=== PATIENT | female | born 1995 | race Caucasian/White ===

== ENCOUNTER 2021-07-29 20:29 | Inpatient (IN) | payer MEDICAID ==
[~2021-07-29] VITALS: Ht 165.1 cm; Wt 120.3 kg
[2021-07-29] MEDS ORDERED: SODIUM CHLORIDE FLUSH 10ML SYR IVF ONE (21:00)
[2021-07-29] MEDS ORDERED: ACETAMINOPHEN 500 MG TABLET PO ONE (21:00)
[2021-07-29] MEDS ORDERED: SODIUM CHLORIDE 0.9% 1,000ML IVBOLUS ONE (21:00)
[2021-07-29 21:57] LABS: BASOPHILS % (AUTO) 2 % (0-1); EOSINOPHILS % (AUTO) 0 % (1-7); LYMPHOCYTES % (AUTO) 30 % (22-44); MEAN CORPUSCULAR HEMOGLOBIN 31.1 pg (27.0-34.8); MEAN CORPUSCULAR HGB CONC 33.8 g/dL (32.4-35.8); MEAN PLATELET VOLUME 8.5 fL (7.4-10.4); MONOCYTES % (AUTO) 10 % (2-9); NEUTROPHILS % (AUTO) 59 % (42-75); PLATELET COUNT 229 x10^3/uL (130-400); RED BLOOD COUNT 5.08 x10^6/uL (3.82-5.3); RED CELL DISTRIBUTION WIDTH 13.3 % (9.6-15.2)
--- NOTE | 2021-07-29 22:05 | NUR ---
PT. TO ROOM FROM LOBBY AT THIS TIME.
[2021-07-29 22:09] LABS: ALANINE AMINOTRANSFERASE 48 U/L (12-78); ALBUMIN 3.5 g/dL (3.4-5.0); ANION GAP 9 mmol/L (5-15); CALCIUM 8.5 mg/dL (8.5-10.1); CHLORIDE 103 mmol/L (98-107); CREATININE 0.85 mg/dL (0.55-1.02)
[2021-07-29 22:14] LABS: ALKALINE PHOSPHATASE 73 U/L (45-117); BILIRUBIN,TOTAL 0.7 mg/dL (0.2-1.0); TOTAL PROTEIN 8.1 g/dL (6.4-8.2); TROPONIN I < 0.015 ng/mL (0.000-0.045)
--- NOTE | 2021-07-29 22:24 | NUR ---
TURNED O2 OFF WHEN PT. FIRST ARRIVED TO ROOM. WITHIN ABOUT 10 MIN OFF O2 PT. O2 SAT DROPPED TO 88% WITHOUT RECOVERY. DR. LESLIE AWARE AND IN TO EVAL PT. AND DISCUSS POC.
--- NOTE | 2021-07-29 22:46 | NUR ---
REPORT FROM RANULFO THAKKAR. VERIFIED TYLENOL ALLERGY WITH PT, PT REPORTS NO ALLERGY TO TYLENOL.
--- NOTE | 2021-07-29 22:48 | NUR ---
[facility] AT BEDSIDE
--- NOTE | 2021-07-29 22:51 | NUR ---
[facility] UPDATED ABOUT TYLENOL ALLERGY NOT BEING ACCURATE. NO NEW ORDER FOR TYLENOL.
--- NOTE | 2021-07-29 22:59 | NUR ---
REPORT GIVEN TO TANYA THAKKAR
[2021-07-29] MEDS ORDERED: ONDANSETRON 2MG/ML, 2ML IVPush PRN (23:30)
[2021-07-29] MEDS ORDERED: PHARMACY MAY ADJ FOR RENAL FX MC PRN (23:30)
[2021-07-29] MEDS ORDERED: PROCHLORPERAZINE 10MG TABLET PO PRN (23:30)
[2021-07-29] MEDS ORDERED: CEFTRIAXONE 1,000 MG in DEXTROSE 5% 50 ML IVPB SCH (23:30)
[2021-07-29] MEDS ORDERED: MELATONIN 5 MG TABLET PO PRN (23:30)
[2021-07-29] MEDS ORDERED: ACETAMINOPHEN 325 MG TABLET PO PRN (23:30)
[2021-07-30 00:39] VITALS: BP 122/83
[2021-07-30] MEDS ORDERED: AZITHROMYCIN 500 MG in SODIUM CHLORIDE 0.9% 250 ML IV SCH (01:00)
[2021-07-30] MEDS: ENOXAPARIN 120MG/0.8ML SQ SCH ×2 (01:20→12:32)
[2021-07-30] MEDS: methylPREDNISolone SOD SUCC 40 MG/ML IVPush SCH ×4 (01:20→17:41)
[2021-07-30] MEDS ORDERED: DIPHENHYDRAMINE 50 MG/ML, 1ML IVPush ONE (02:30)
[2021-07-30 05:23] LABS: HCT (SEDRATE) 43.2 % (34.6-47.8)
[2021-07-30 05:24] LABS: BASOPHILS % (AUTO) 1 % (0-1); EOSINOPHILS % (AUTO) 0 % (1-7); LYMPHOCYTES % (AUTO) 15 % (22-44); MEAN CORPUSCULAR HEMOGLOBIN 31.5 pg (27.0-34.8); MEAN CORPUSCULAR HGB CONC 34.1 g/dL (32.4-35.8); MEAN PLATELET VOLUME 8.5 fL (7.4-10.4); MONOCYTES % (AUTO) 5 % (2-9); NEUTROPHILS % (AUTO) 80 % (42-75); PLATELET COUNT 218 x10^3/uL (130-400); RED BLOOD COUNT 4.67 x10^6/uL (3.82-5.3); RED CELL DISTRIBUTION WIDTH 13.6 % (9.6-15.2)
[2021-07-30 05:35] LABS: ANION GAP 7 mmol/L (5-15); CALCIUM 8.1 mg/dL (8.5-10.1); CHLORIDE 105 mmol/L (98-107)
[2021-07-30 05:49] LABS: CREATININE 0.66 mg/dL (0.55-1.02)
[2021-07-30 08:42] VITALS: BP 120/79
[2021-07-30] MEDS: ALBUTEROL-IPRATROPIUM MDI INH INH SCH ×3 (08:45→17:41)
[2021-07-30] MEDS ORDERED: ZINC SULFATE 220 MG CAPSULE PO SCH (09:00)
[2021-07-30] MEDS ORDERED: ASCORBIC ACID 500 MG TABLET PO SCH (09:00)
[2021-07-30] MEDS ORDERED: ZINC220C8 PO (11:42)
[2021-07-30] MEDS ORDERED: ASCO500T9 PO (11:42)
[2021-07-30] MEDS ORDERED: FLUT1AER INH (11:42)
[2021-07-30] MEDS ORDERED: PRED5TAB PO (11:42)
[2021-07-30 14:27] VITALS: BP 133/84
== END 2021-07-30 18:16 | disposition home or self-care (01) | DRG 177 ==
LOC: ED 22:20 → EDIP 22:31 → 4EST 07-30 00:29
PROVIDERS: ADMIT Internal Medicine; ATTEND Internal Medicine
DX: U07.1 COVID-19 (principal); J96.01 Acute respiratory failure with hypoxia; J12.82 Pneumonia due to coronavirus disease 2019; F17.200 Nicotine dependence, unspecified, uncomplicated; J45.909 Unspecified asthma, uncomplicated; Z88.5 Allergy status to narcotic agent
CPT/HCPCS: 36415; 71045; 71250; 80048; 80053; 83735; 84100; 84145; 84443; 84484; 85025; 85651; 93005; 96374; 99285; J0456; J0696; J1650; U0005; J1200; J2920; J7030; J7050; U0003